=== PATIENT | female | born 1980 | race Caucasian/White ===

== ENCOUNTER → 2020-12-15 | Outpatient (CLI) | payer BC | LOC: MC.RAD 13:48 | DX: N63.12 Unspecified lump in the right breast, upper inner quadrant (principal) ==

== ENCOUNTER → 2022-03-14 | Outpatient (CLI) | payer BC | LOC: MC.RAD 13:33 | DX: N63.12 Unspecified lump in the right breast, upper inner quadrant (principal) ==